=== PATIENT | male | born 1955 | race Asian ===

== ENCOUNTER 2018-12-25 13:14 | Emergency (ER) | payer OTHER ==
[2018-12-25 13:24] VITALS: BP 109/67; PULSE 72; TEMP 97.4; BMI 20.3
[2018-12-25] MEDS ORDERED: DIPHTH,PERTUSS(ACELL),TET 0.5 ML DISP.SYRIN IM ONE ×2 (14:33→14:35)
--- NOTE | 2018-12-25 15:29 | PDOC ---
History of Present Illness - General Chief Complaint: Laceration Stated Complaint: LT HAND MIDDLE FINGER INJURY Time Seen by Provider: 12/25/18 14:03 History Source: Patient Exam Limitations: No Limitations - History of Present Illness Initial Comments: 12/25/18 16:12 HISTORY OF PRESENT ILLNESS: This is a 63-year-old male without significant medical history of brought to the emergency department by his daughter for evaluation of laceration of his left middle finger. Patient was preparing food for his daughter when the knife slipped lacerating his finger. Patient applied pressure dressing to wounds and came to the emergency department for evaluation. Patient does not remember when his last tetanus shot was. No recent travel or sick contacts. PAST MEDICAL HISTORY: Denies past medical history SURGICAL HISTORY: Denies ALLERGIES: No known drug allergies REVIEW OF SYSTEMS General/Constitutional: Denies fever or chills. Denies weakness, weight change. HEENT: Denies change in vision. Denies ear pain or discharge. Denies sore throat. Cardiovascular: Denies chest pain or shortness of breath. Respiratory: Denies cough, wheezing, or hemoptysis. Gastrointestinal: Denies nausea, vomiting, diarrhea or constipation. Denies rectal bleeding. Genitourinary: Denies dysuria, frequency, or change in urination. Musculoskeletal: see HPI Skin and breasts: Denies rash or easy bruising. Neurologic: Denies headache, vertigo, loss of consciousness, or loss of sensation. Psychiatric: Denies depression or anxiety. Endocrine: Denies increased thirst. Denies abnormal weight change. Hematologic/Lymphatic: Denies anemia, easy bleeding, or history of blood clots. Allergic/Immunologic: Denies hives or skin allergy. Denies latex allergy. PHYSICAL EXAM General Appearance: Well-appearing, appropriately dressed. No apparent distress , no intoxication. Respiratory/Chest: Lungs CTAB. No shortness of breath, chest tenderness, respiratory distress, accessory muscle use. No crackles, rales, rhonchi, stridor , wheezing, dullness Cardiovascular: RRR. S1, S2. No JVD, murmur, bradycardia, tachycardia. Musculoskeletal/Extremities: Normal inspection. FROM of all extremities, normal capillary refill. Pelvis Stable. No CVA tenderness. No tenderness to extremities, pedal edema, swelling, erythema or deformity. Integumentary: 2.5 cm curvilinear laceration present to the radial aspect of the rules distal phalanx of the left third digit. Laceration is through the nail and into the nailbed. No subungual hematoma or ecchymosis present. Capillary refill is less than 2 seconds. Neurologic: package line operator II-XII intact. Fully oriented, alert. Appropriate mood/affect. Motor strength 5/5. No appreciable EOM palsy, facial droop or sensory deficit. Past History - Past Medical History Allergies/Adverse Reactions: Allergies Allergy/AdvReac Type Severity Reaction Status Date / Time No Known Allergies Allergy Verified 12/25/18 13:24 Home Medications: Ambulatory Orders NK [No Known Home Medication] 10/11/15 Asthma: Yes COPD: No HTN: Yes - Immunization History Immunization Up to Date: Yes - Suicide/Smoking/Psychosocial Hx Smoking History: Current every day smoker Number of Cigarettes Smoked Daily: 10 Information on smoking cessation initiated: No 'Breaking Loose' booklet given: 10/11/15 Hx Alcohol Use: Yes Drug/Substance Use Hx: No Substance Use Type: None *Physical Exam - Vital Signs Last Vital Signs Temp Pulse Resp BP Pulse Ox 97.4 F L 72 16 109/67 98 12/25/18 13:21 12/25/18 13:21 12/25/18 13:21 12/25/18 13:21 12/25/18 13:21 Procedures - Consent Consent obtained: Verbal, From Patient - Laceration/Wound Repair Left Medial Finger 3rd digit Wound Length: to 2.5 cm Wound Explored: clean Wound's Depth, Shape: superficial, flap Irrigated w/ Saline: Yes Betadine Prep: Yes Anesthesia: 1% Lidocaine Amount of Anesthetic (ccs): 4 Wound Debrided: minimal Wound Repaired With: Sutures Suture Size/Type: 5:0, proline Number of Sutures: 4 Layer Closure: No Sterile Dressing Applied: Yes Splint Applied: No Sling Applied: No Progress: 12/25/18 16:19 Given incomplete laceration to the nail nailbed is well approximated under tension from the nail. Patient tolerated suturing well. ED Treatment Course - RADIOLOGY Radiology Studies Ordered: Category Date Time Status FINGER(S) LEFT [RAD] Stat Radiology 12/25/18 14:33 Completed - Medications Given in the ED: ED Medications Discontinued Medications Generic Name Dose Route Start Last Admin Trade Name Freq PRN Reason Stop Dose Admin Diphtheria/Tetanus/Acell Pertussis 0.5 ml 12/25/18 14:33 12/25/18 14:40 Boostrix - IM 12/25/18 14:34 0.5 ml .ONCE ONE Administration Medical Decision Making - Medical Decision Making 12/25/18 16:18 A/P: 63-year-old male with laceration to left third finger X-ray as read by me: No fractures or foreign bodies are present. Laceration repair-see procedure note for details Discharge home to follow-up with hand surgeon. Portions of this note have been documented using voice recognition software. As a result, errors may occur in the dressage instructor process. Effort has been made to correct all grammatical and dressage instructor error, but some may have been missed. *DC/Admit/Observation/Transfer Diagnosis at time of Disposition: Finger laceration Qualifiers: Encounter type: initial encounter Finger: middle finger Damage to nail status: with damage Foreign body presence: without foreign body Laterality: left Qualified Code(s): S61.313A - Laceration without foreign body of left middle finger with damage to nail, initial encounter - Discharge Dispostion Disposition: HOME Condition at time of disposition: Stable Decision to Admit order: No - Referrals Referrals: Lencho Mcmahan MD [Primary Care Provider] - Nghia Bazzi MD [Staff Physician] - - Patient Instructions Printed Discharge Instructions: DI for Laceration Repair Additional Instructions: Rest, elevate, avoid strenuous activity or heavy lifting until sutures are removed Leave dressing on for the next 24 hours, Then may remove dressing gently and wash area with soap and water. Reapply bacitracin ointment and dressing daily for the next 5 days On day #6 keep the wound protected and cover as needed until sutures are removed allowing wound to start to dry May use Tylenol or Motrin for pain relief Suture removal in : 7-10 Days - Post Discharge Activity Forms/Work/School Notes: Back to Work
== END 2018-12-25 15:32 | disposition home or self-care (01) ==
LOC: JERFT 13:14
PROC: 3E0234Z Introduction of Serum, Toxoid and Vaccine into Muscle, Percutaneous Approach (ICD-10-PCS; principal; 2018-12-25)
PROC: 0HQGXZZ Repair Left Hand Skin, External Approach (ICD-10-PCS; 2018-12-25)
DX: S61.313A Laceration without foreign body of left middle finger with damage to nail, initial encounter (principal); W26.0XXA Contact with knife, initial encounter; Y93.G1 Activity, food preparation and clean up; Y92.010 Kitchen of single-family (private) house as the place of occurrence of the external cause; Y99.8 Other external cause status
CPT/HCPCS: 73140-TC-LT-FY; 90715; 99282-25

== ENCOUNTER 2021-01-13 07:34 | Emergency (ER) | payer OTHER ==
[2021-01-13 07:41] VITALS: BMI 22.4
[2021-01-13] MEDS ORDERED: ACETAMINOPHEN 1000 MG/100 ML VIAL (NON FORMULARY) IVPB ONE (07:58)
[2021-01-13] MEDS ORDERED: SODIUM CHLORIDE 1,000 ML IV STA (07:58)
[2021-01-13 08:56] LABS: URINE APPEARANCE Clear; URINE BILIRUBIN Negative (NEGATIVE); URINE COLOR Yellow; URINE GLUCOSE (UA) Negative (NEGATIVE); URINE KETONE Trace (NEGATIVE); URINE LEUK ESTERASE Negative (NEGATIVE); URINE NITRITE Negative (NEGATIVE); URINE PROTEIN 2+ (NEGATIVE); URINE UROBILINOGEN 0.2 mg/dL (0.2-1.0)
[2021-01-13 09:17] LABS: BASO % 0.7 % (0-2.0); EOS % 1.5 % (0-4.5); HEMATOCRIT 48.4 % (35.4-49); HEMOGLOBIN 16.9 GM/dL (11.7-16.9); LYMPH % 17.4 % (8-40); MCH 34.4 pg (25.7-33.7); MCHC 34.9 g/dl (32.0-35.9); MEAN CELL VOLUME 98.5 fl (80-96); MEAN PLT VOLUME 7.4 fl (7.5-11.1); NEUT % 74.4 % (42.8-82.8); PLATELET COUNT 238 10^3/uL (134-434); RBC 4.91 M/mm3 (4.00-5.60); RDW 13.3 % (11.9-15.9); WHITE BLOOD COUNT 13.5 K/mm3 (4.0-10.0)
[2021-01-13] MEDS ORDERED: ACETAMINOPHEN INJECTION 100 ML IVPB ONE (09:17)
[2021-01-13 09:26] LABS: INR 0.93 (0.83-1.09); PROTHROMBIN TIME (PATIENT) 11.3 SEC (9.7-13.0)
[2021-01-13 09:44] LABS: ALBUMIN 4.1 g/dl (3.4-5.0); CALCIUM 9.6 mg/dL (8.5-10.1)
[2021-01-13 09:45] LABS: BLOOD UREA NITROGEN 11.7 mg/dL (7-18)
[2021-01-13 09:47] LABS: CREATININE 1.1 mg/dL (0.55-1.3)
[2021-01-13 12:24] VITALS: BP 110/76; PULSE 72; TEMP 98.6
== END 2021-01-13 12:00 | disposition home or self-care (01) ==
LOC: JER 07:34
PROC: 3E033GC Introduction of Other Therapeutic Substance into Peripheral Vein, Percutaneous Approach (ICD-10-PCS; principal; 2021-01-13)
DX: K52.9 Noninfective gastroenteritis and colitis, unspecified (principal)
CPT/HCPCS: 36415; 74177-TC; 80053; 81003; 83690; 85025; 85610; 87086; 99285-25; J0131; Q9967